=== PATIENT | female | born 1970 ===

== ENCOUNTER 2022-05-11 07:53 | Outpatient (REF) | payer OTHER, SELFPAY ==
--- NOTE | ~2022-05-11 | XR_ITS ---
EXAMINATION: XR KNEES, STANDING AP XR KNEE, RIGHT XR KNEE, LEFT CLINICAL INFORMATION: Knee pain COMPARISON: Bilateral standing AP knees and right knee radiographs 10/11/2017. TECHNIQUE: Standing AP view of both knees is performed. Each knee is also imaged in lateral and axial patella views. FINDINGS: Right: Normal bony mineralization. No fracture, dislocation, or destructive process. There is mild narrowing medial knee joint compartment with marginal spurring medial femoral condyle and medial tibial plateau. No erosive change or chondrocalcinosis. There is a probable small suprapatellar effusion. Axial view patella shows no joint narrowing, lateralization, or tilting. There are serpiginous densities overlying the calf consistent with varicose veins. Left: Normal bony mineralization. No fracture, dislocation, or destructive process. No definite joint narrowing. No erosive change or chondrocalcinosis. No lateralization or significant tilting patella. No suprapatellar effusion demonstrated. There are extensive superficial serpiginous densities overlying the medial thigh and medial calf consistent with varicose veins. XR/XR knee LT 2V IMPRESSION: Right: -Mild narrowing medial knee joint compartment with marginal osteophytes similar to 05/11/2022. -Suspect small suprapatellar effusion. -Varicose veins lower leg. Left: -No joint narrowing or effusion. -Extensive varicose veins upper and lower leg.
--- NOTE | ~2022-05-11 | XR_ITS ---
EXAMINATION: XR KNEES, STANDING AP XR KNEE, RIGHT XR KNEE, LEFT CLINICAL INFORMATION: Knee pain COMPARISON: Bilateral standing AP knees and right knee radiographs 10/11/2017. TECHNIQUE: Standing AP view of both knees is performed. Each knee is also imaged in lateral and axial patella views. FINDINGS: Right: Normal bony mineralization. No fracture, dislocation, or destructive process. There is mild narrowing medial knee joint compartment with marginal spurring medial femoral condyle and medial tibial plateau. No erosive change or chondrocalcinosis. There is a probable small suprapatellar effusion. Axial view patella shows no joint narrowing, lateralization, or tilting. There are serpiginous densities overlying the calf consistent with varicose veins. Left: Normal bony mineralization. No fracture, dislocation, or destructive process. No definite joint narrowing. No erosive change or chondrocalcinosis. No lateralization or significant tilting patella. No suprapatellar effusion demonstrated. There are extensive superficial serpiginous densities overlying the medial thigh and medial calf consistent with varicose veins. XR/XR knee RT 2V IMPRESSION: Right: -Mild narrowing medial knee joint compartment with marginal osteophytes similar to 05/11/2022. -Suspect small suprapatellar effusion. -Varicose veins lower leg. Left: -No joint narrowing or effusion. -Extensive varicose veins upper and lower leg.
--- NOTE | ~2022-05-11 | XR_ITS ---
EXAMINATION: XR KNEES, STANDING AP XR KNEE, RIGHT XR KNEE, LEFT CLINICAL INFORMATION: Knee pain COMPARISON: Bilateral standing AP knees and right knee radiographs 10/11/2017. TECHNIQUE: Standing AP view of both knees is performed. Each knee is also imaged in lateral and axial patella views. FINDINGS: Right: Normal bony mineralization. No fracture, dislocation, or destructive process. There is mild narrowing medial knee joint compartment with marginal spurring medial femoral condyle and medial tibial plateau. No erosive change or chondrocalcinosis. There is a probable small suprapatellar effusion. Axial view patella shows no joint narrowing, lateralization, or tilting. There are serpiginous densities overlying the calf consistent with varicose veins. Left: Normal bony mineralization. No fracture, dislocation, or destructive process. No definite joint narrowing. No erosive change or chondrocalcinosis. No lateralization or significant tilting patella. No suprapatellar effusion demonstrated. There are extensive superficial serpiginous densities overlying the medial thigh and medial calf consistent with varicose veins. XR/XR knee standing BI IMPRESSION: Right: -Mild narrowing medial knee joint compartment with marginal osteophytes similar to 05/11/2022. -Suspect small suprapatellar effusion. -Varicose veins lower leg. Left: -No joint narrowing or effusion. -Extensive varicose veins upper and lower leg.
== END 2022-05-11 07:54 | disposition home or self-care (01) ==
LOC: HO.HOSX 07:53
PROVIDERS: Visit Provider Orthopaedic Surgery
DX: M71.21 Synovial cyst of popliteal space [Baker], right knee (principal); M71.22 Synovial cyst of popliteal space [Baker], left knee
CPT/HCPCS: 73560; 73565; 99202

== ENCOUNTER 2023-06-29 14:20 | Emergency (ER) | payer OTHER, SELFPAY ==
[2023-06-29 14:22] VITALS: BP 148/91; PULSE 110; RESP 18; TEMP 36.7; O2SAT 98; BMI 27.4
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
[2023-06-29 16:28] VITALS: BP 149/83; PULSE 95; O2SAT 99
== END 2023-06-29 16:55 | disposition home or self-care (01) ==
PROVIDERS: Emergency Provider Emergency Medicine
DX: S13.4XXA Sprain of ligaments of cervical spine, initial encounter (principal); S09.90XA Unspecified injury of head, initial encounter; V43.52XA Car driver injured in collision with other type car in traffic accident, initial encounter; Y93.9 Activity, unspecified; Y92.410 Unspecified street and highway as the place of occurrence of the external cause; Y99.9 Unspecified external cause status; Z79.899 Other long term (current) drug therapy
CPT/HCPCS: 99283

== ENCOUNTER 2023-09-07 07:02 | Emergency (ER) | payer OTHER, SELFPAY ==
[2023-09-07 07:11] VITALS: BP 131/85; PULSE 109; RESP 18; TEMP 36.6; O2SAT 97; BMI 27.1
--- NOTE | 2023-09-07 09:11 | ED.EXTPRO ---
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 Patient denies any dizziness, lightheadedness, abdominal pain, nausea, vomiting, fever, chills, blurry vision, double vision, loss of vision, chest pain, difficulty breathing, shortness of breath, back pain, night sweats, pain with urination, increased urinary frequency, increased urinary urgency, blood in her urine or stool, syncope or a near syncopal episode, recent trauma or falls, bowel incontinence, bladder incontinence, bowel retention, bladder retention, or any other complaints at this time. MD Complaint: extremity pain Onset (ago): week(s) Pain Consistency: intermittent Location: left and upper extremity Severity scale (1-10): 3 Radiation: proximal and distal Relieving factors: nothing Exacerbating factors: nothing Associated symptoms: denies other symptoms Related Data Home Medications Medication Instructions Recorded Confirmed lisinopril 20 1 tab PO DAILY 05/11/22 mg-hydrochlorothiazide 12.5 mg tablet Previous Rx's Medication Instructions Recorded cyclobenzaprine 10 mg tablet 10 mg PO TID PRN muscle spasm #14 06/29/23 tabs ibuprofen 600 mg tablet 600 mg PO Q8H PRN pain #14 tabs 06/29/23 lidocaine 5 % topical patch 1 patch topical DAILY #15 ea 06/29/23 prednisone 20 mg tablet 20 mg PO DAILY 7 days #7 tabs 09/07/23 Allergies Allergy/AdvReac Type Severity Reaction Status Date / Time aspirin [ASPIRIN] Allergy Unknown UNKNOWN Verified 09/07/23 07:10 penicillin V Allergy Unknown Hives Verified 09/07/23 07:10 Penicillins [PENICILLINS] Allergy Unknown UNKNOWN Verified 09/07/23 07:10 Review of Systems Constitutional: Constitutional: Reports no additional constitutional complaints, Denies chills, Denies fever(s) and Denies night sweats Eyes: Eyes: Reports no additional eye complaints, Denies blurry vision, Denies change in vision, Denies diplopia, Denies eye discharge, Denies loss of vision and Denies eye pain ENT: Denies dizziness Cardiovascular: Cardiovascular: Reports no additional cardiovascular complaints, Denies chest pain, Denies lightheadedness, Denies Loss of Consciousness and Denies dyspnea Respiratory: Respiratory: Reports no additional respiratory complaints and Denies dyspnea Gastrointestinal: Gastrointestinal: Reports no additional gastrointestinal complaints, Denies abdominal pain, Denies melena, Denies hematochezia, Denies change in bowel habits and Denies change in stool character Genitourinary: Genitourinary: Denies hematuria, Denies urinary frequency, Denies dysuria, Denies urinary incontinence, Denies urinary hesitancy and Denies urinary urgency Musculoskeletal: Musculoskeletal: Reports no additional musculoskeletal complaints, Reports numbness (left first 3rd digits) and Reports tingling (left first 3rd digits) Neurologic: Denies dizziness, Denies loss of vision, Reports numbness (left first 3rd digits) and Reports tingling (left first 3rd digits) Psychiatric: Psychiatric: Reports no additional psychiatric complaints Endocrine: Endocrine: Reports no additional endocrine complaints Hematologic/Lymphatic: Hematologic/Lymphatic: Reports no additional hematologic/lymphatic complaints Allergic/Immunologic: Allergic/Immunologic: Reports no additional allergic/immunologic complaints PMFSH Past Medical History Attestation statement: The following information was validated with the patient. 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 Physical Exam Vital Signs: Vital Signs: Last Vital Signs Temp 97.8 F 09/07/23 07:11 Pulse 109 H 09/07/23 07:11 Resp 18 09/07/23 07:11 BP 131/85 09/07/23 07:11 Pulse Ox 97 09/07/23 07:11 O2 Del Method Room Air 09/07/23 07:11 BMI result Body Mass Index 27.1 Const: General: cooperative, no acute distress, alert and awake Nutritional Appearance: well nourished Orientation/consciousness: patient oriented x3 Limitations: no limitations HEENT: Head: Yes normal to inspection and Yes atraumatic Ears: hearing grossly normal bilaterally and external ears normal General nose exam: Normal external nose present, no nasal discharge noted and no epistaxis Face and sinus: Yes normal facial exam, No abrasion and No laceration Mouth: Normal oral and palatal mucosa present, no drooling and no muffled voice Eyes: General: appearance normal, both eyes and all related structures Periorbital: periorbital findings normal Eyelids: Yes eyelids normal Conjunctivae: conjunctivae normal Pupils: Equal, round and reactive pupils present EOM: EOMs intact bilaterally Neck: Neck: Yes normal visual inspection, Yes full ROM and Yes no lymphadenopathy Chest: Chest palpation & inspection: normal inspection of the chest Resp: Effort & Inspection: normal respiratory effort and able to speak in complete sentences GI: Inspection: Yes normal to inspection Neuro: General: patient oriented x3 and moves all extremities Cranial nerves: Yes Equal, round and reactive pupils present Cognition (Neuro): normal cognition Motor exam (neuro): 5/5 motor strength present throughout Sensory Exam: Normal double simultaneous stimulation for sensation Coordination: [id number] test normal Extrem: Other: positive tinnel test left wrist General: Yes normal to inspection, Yes full ROM and Yes capillary refill normal Psych: Appearance: grossly normal Mental Status: mental status grossly normal Affect: normal affect Attitude: cooperative Thought process: Normal thought process present Thought content: Normal thought content present Insight: Good insight present (Psych) Medical Decision Making Medical Decision Making MDM Narrative: Patient is a 52 year old assigned female at with a history of fibromyalgia presenting to the emergency department today with left wrist pain that radiates into her left first 3 digits and up her forearm. Patient's physical exam was as noted in the physical exam portion of this note. I explained my physical exam findings to the patient. I answered all questions asked by the patient. Patient's left wrist was placed in a velcro splint, without incident. Patient's PMS was intact prior to and after splint placement. I stressed the importance of the patient taking her medication as prescribed. I stressed the importance of the patient following up with her primary care provider and an orthopedic provider. I stressed the importance of the patient returning to the emergency department immediately if her symptoms were to worsen or if she were to develop any dizziness, shortness of breath, difficulty breathing, chest pain, blurry vision, loss of vision, nausea, vomiting, abdominal pain, fever, chills, back pain, or any other complaints. Patient verbalized agreement and understanding with this treatment plan and discharge. Differential Diagnosis Differential Diagnoses: The differential diagnosis associated with the presentation includes Carpal tunnel Procedures Orthopedic Splinting/Casting Injury #1: Side: left Upper Extremity Injury Location: wrist Upper Extremity Immobilizer: wrist splint Discharge Plan Discharge Clinical Impression: Carpal tunnel syndrome Patient Disposition: Home, Self-Care Instructions: Paresthesia (ED) Additional Instructions: Follow up with your primary care provider and an orthopedic provider. Return to the emergency department immediately if your symptoms worsen or if you develop any dizziness, shortness of breath, difficulty breathing, chest pain, blurry vision, loss of vision, nausea, vomiting, abdominal pain, fever, chills, back pain, or any other complaints. Rajesh un seguimiento con ruvalcaba proveedor de atenci?n primaria y un proveedor ortop?dico. Regrese al departamento de emergencias inmediatamente si dustin s?ntomas empeoran o si presenta mareos, dificultad para respirar, dificultad para respirar, dolor en el pecho, visi?n borrosa, p?rdida de la visi?n, n?useas, v?mitos, dolor abdominal, fiebre, escalofr?os, dolor de espalda o cualquier otras quejas. Prescriptions: New prednisone 20 mg tablet 20 mg PO DAILY 7 Days Qty: 7 0RF No Action cyclobenzaprine 10 mg tablet 10 mg PO TID PRN (Reason: muscle spasm) Qty: 14 0RF ibuprofen 600 mg tablet 600 mg PO Q8H PRN (Reason: pain) Qty: 14 0RF lidocaine 5 % adhesive patch,medicated 1 patch topical DAILY Qty: 15 0RF Rx Instructions: leave on most painful area for up to 12 hrs lisinopril-hydrochlorothiazide 20-12.5 mg tablet 1 tab PO DAILY Referrals: [facility] [place] [facility] [Provider Group] (Call to establish and follow up with a primary care provider. If you already have a primary care provider, please follow up with them. Llame para establecer y realizar un seguimiento con un proveedor de atenci?n primaria. Si ya tiene un proveedor de atenci?n primaria, rajesh un seguimiento con ?l.) [facility] [place] [facility] [Provider Group] (Call to establish and follow up with a primary care provider. If you already have a primary care provider, please follow up with them. Llame para establecer y realizar un seguimiento con un proveedor de atenci?n primaria. Si ya tiene un proveedor de atenci?n primaria, rajesh un seguimiento con ?l.) [facility] [place] [facility] [Provider Group] (Call to establish and follow up with a primary care provider. If you already have a primary care provider, please follow up with them. Llame para establecer y realizar un seguimiento con un proveedor de atenci?n primaria. Si ya tiene un proveedor de atenci?n primaria, rajesh un seguimiento con ?l.) [facility] [place] [facility] [Provider Group] (Call to establish and follow up with an orthopedic provider. Llame para establecer y realizar un seguimiento con un proveedor ortop?dico.) Interventions: ED Discharge Assessment Last Done: 09/07/23 10:08 Discharge Date/Time: 09/07/23 10:08 Print Language: [place]i
== END 2023-09-07 10:08 | disposition home or self-care (01) ==
PROVIDERS: Emergency Provider Emergency Medicine
DX: G56.02 Carpal tunnel syndrome, left upper limb (principal); M25.532 Pain in left wrist; Z79.899 Other long term (current) drug therapy
CPT/HCPCS: 29125; 99283

== ENCOUNTER 2023-10-07 22:59 | Emergency (ER) | payer OTHER, MEDICAID, SELFPAY ==
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
[2023-10-07 23:09] VITALS: BP 118/93; BP 176/104; PULSE 100; PULSE 104; RESP 18; TEMP 37.2; O2SAT 97; O2SAT 98; BMI 27.3
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
[2023-10-07 23:41] VITALS: BP 138/87; PULSE 88; RESP 16; TEMP 37.4; O2SAT 94
[2023-10-08 01:00] VITALS: BP 122/76; PULSE 78; RESP 16; TEMP 37.1; O2SAT 97
== END 2023-10-08 01:05 | disposition home or self-care (01) ==
PROVIDERS: Emergency Provider Emergency Medicine
DX: S09.90XA Unspecified injury of head, initial encounter (principal); S16.1XXA Strain of muscle, fascia and tendon at neck level, initial encounter; V43.52XA Car driver injured in collision with other type car in traffic accident, initial encounter; Y93.89 Activity, other specified; Y92.414 Local residential or business street as the place of occurrence of the external cause; Y99.9 Unspecified external cause status
CPT/HCPCS: 70450; 71045; 72125; 99284

== ENCOUNTER 2024-04-10 10:03 | Outpatient (REF) | payer MEDICAID, SELFPAY ==
--- NOTE | ~2024-04-10 | XR_ITS ---
EXAMINATION: XR HAND, LEFT CLINICAL INFORMATION: Chronic hand pain COMPARISON: None available. TECHNIQUE: PA, lateral, and oblique views of the left hand. FINDINGS: Advanced degenerative change observed at the first CMC joint. Hand itself is intact. Joint spaces preserved. No fracture, dislocation or destructive process. XR/XR hand LT min 3V IMPRESSION: Degenerative changes observed at the first CMC.
--- NOTE | ~2024-04-10 | XR_ITS ---
EXAMINATION: XR WRIST, LEFT CLINICAL INFORMATION: Chronic pain COMPARISON: None available. TECHNIQUE: PA, lateral, and oblique views of the left wrist. FINDINGS: Degenerative change observed, at the first CMC joint, and at the level of the multangular bones. There is no acute fracture, dislocation or destructive process. The ulnar styloid is intact. No joint effusion. XR/XR wrist LT min 3V IMPRESSION: Degenerative change noted.
== END 2024-04-10 10:04 | disposition home or self-care (01) ==
LOC: HO.HHCX 10:03
PROVIDERS: Visit Provider Internal Medicine
DX: M25.532 Pain in left wrist (principal); M79.642 Pain in left hand; G89.29 Other chronic pain
CPT/HCPCS: 36415; 73110; 73130; 84443; 85025

== ENCOUNTER 2024-04-10 10:14 | Outpatient (REF) | payer MEDICAID, SELFPAY ==
[2024-04-10 11:53] LABS: MANUAL DIFF FLAG NO
[2024-04-10 12:02] LABS: Basophils Absolute Auto 0.1 X10*3/uL (0.0-0.2); Basophils Percent Auto 0.6 % (0-2); Eosinophils Absolute Auto 0.3 X10*3/uL (0.0-0.4); Eosinophils Percent Auto 2.6 % (0-4); Hematocrit 42.9 % (37.0-47.0); Hemoglobin 14.1 g/dl (12.0-16.0); Imm Gran Abs Auto 0.04 X10*3/uL (0.00-0.03); Imm Gran Pct Auto 0.4 % (0.0-0.4); Lymphocytes Absolute Auto 3.1 X10*3/uL (1.2-4.9); Lymphocytes Percent Auto 32.4 % (20-40); Mean Corpuscular HGB Conc 32.9 g/dl (31.0-35.0); Mean Corpuscular Hemoglobin 30.1 pg (27.0-33.0); Mean Corpuscular Volume 91.7 fL (80.0-98.0); Mean Platelet Volume 12.4 fL (9.4-12.3); Monocytes Absolute Auto 0.7 X10*3/uL (0.1-1.2); Monocytes Percent Auto 7.3 % (2-11); Neutrophils Absolute Auto 5.4 x10*3/uL (2.0-8.3); Neutrophils Percent Auto 56.7 % (45-73); Platelet Count 244 X10*3/uL (160-400); Red Blood Count 4.68 X10*6/uL (4.20-5.50); Red Cell Distribution Width 13.3 % (11.0-16.0); White Blood Count 9.5 X10*3/uL (4.8-10.8)
[2024-04-10 12:38] LABS: TSH reflex Free T4 3.17 uIU/mL (0.32-4.0)
== END 2024-04-10 10:15 | disposition home or self-care (01) ==
LOC: HO.HHCL 10:14
PROVIDERS: Visit Provider Internal Medicine
DX: E04.9 Nontoxic goiter, unspecified (principal)
CPT/HCPCS: 36415; 84443; 85025

== ENCOUNTER 2024-04-25 09:14 | Outpatient (REF) | payer MEDICAID, SELFPAY ==
[2024-04-25 11:43] LABS: Alanine Aminotransferase 23 U/L (0-31); Albumin Level 4.8 g/dL (3.5-5.0); Alkaline Phosphatase 112 U/L (39-117); Anion Gap 13 (12-20); Aspartate Amino Transferase 28 U/L (5-31); Bilirubin Total 0.7 mg/dL (0.0-1.0); Blood Urea Nitrogen 15 mg/dL (9-16); Calcium 11.3 mg/dL (8.4-10.2); Carbon Dioxide 25 mmol/L (22-29); Chloride 108 mmol/L (96-108); Cholesterol 211 mg/dL (<200); Estimated Glomerular Filt Rate > 60; Glucose Random 107 mg/dL (60-115); HDL Cholesterol 50 mg/dL (>40); LDL Cholesterol Calculated 140 mg/dL (<100); Potassium 4.7 mmol/L (3.3-5.1); Sodium 141 mmol/L (135-145); Total Protein 9.6 g/dL (6.5-8.0); Triglycerides 105 mg/dL (<150)
[2024-04-25 11:55] LABS: HBS Num1 0.45 mIU/mL (0-7.99); HBc Num1 0.14 S/CO (0.00-0.79); HBsAGNum1 0.28 S/CO (0.00-0.99); HIV AB/AG Nonreactive (Nonreactive); HIV Num 1 0.05 S/CO (0.00-0.99); Hepatitis A Antibody IgM 0.12 Index (0-0.79); Hepatitis B Core Antibody Nonreactive (Nonreactive); Hepatitis B Surface Antigen Negative (Negative); ~HepC Num1 0.13 S/CO (0.00-0.79); ~Hepatitis A Antibody IgM Nonreactive (Nonreactive); ~Hepatitis B Surface Antibody NONREACTIVE (Nonreactive); ~Hepatitis C Antibody Nonreactive (Nonreactive)
[2024-04-28 14:33] LABS: RPR Rapid Plasma Reagin REACTIVE (NON-REACTIVE)
== END 2024-04-25 09:15 | disposition home or self-care (01) ==
LOC: HO.HHCL 09:14
PROVIDERS: Visit Provider Registered Nurse
DX: Z00.00 Encounter for general adult medical examination without abnormal findings (principal); I10 Essential (primary) hypertension
CPT/HCPCS: 36415; 80053; 80061; 86592; 86593; 86704; 86706; 86709; 86803; 87340; 87389

== ENCOUNTER 2024-05-25 08:51 | Emergency (ER) | payer MEDICAID, SELFPAY ==
[2024-05-25 09:05] VITALS: BP 126/80; PULSE 89; RESP 20; TEMP 36; O2SAT 98; BMI 26.6
--- NOTE | 2024-05-25 10:12 | ED.RECABL ---
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 Patient reports that she was seen at [facility] this month and was diagnosed with syphilis. She wanted a 2nd opinion and so she went to [facility] and had confirmatory syphilis testing. She was prescribed doxycycline (assuming due to her PCN allergy) which she picked up Sunday. She is concerned to start it because of sun exposure. She has no symptoms. She is here today because she would like me to retest her for syphilis because she does not believe her diagnosis. Related Data Home Medications ?Medication ?Instructions ?Recorded ?Confirmed lisinopril 20 1 tab PO DAILY 05/11/22 mg-hydrochlorothiazide 12.5 mg tablet Previous Rx's ?Medication ?Instructions ?Recorded cyclobenzaprine 10 mg tablet 10 mg PO TID PRN muscle spasm #14 06/29/23 tabs ibuprofen 600 mg tablet 600 mg PO Q8H PRN pain #14 tabs 06/29/23 lidocaine 5 % topical patch 1 patch topical DAILY #15 ea 06/29/23 prednisone 20 mg tablet 20 mg PO DAILY 7 days #7 tabs 09/07/23 cyclobenzaprine 10 mg tablet 10 mg PO TID PRN muscle spasm #20 10/08/23 tabs lidocaine 5 % topical patch 1 patch topical DAILY #30 ea 10/08/23 Allergies Allergy/AdvReac Type Severity Reaction Status Date / Time aspirin [ASPIRIN] Allergy Unknown UNKNOWN Verified 05/25/24 09:11 penicillin V Allergy Unknown Hives Verified 05/25/24 09:11 Penicillins [PENICILLINS] Allergy Unknown UNKNOWN Verified 05/25/24 09:11 Review of Systems Review of Systems: Yes all other systems are reviewed and are negative Constitutional: Constitutional: Reports no additional constitutional complaints, Denies body ache(s), Denies chills, Denies fever(s), Denies headache(s) and Denies weakness Eyes: Eyes: Reports no additional eye complaints and Denies change in vision ENT: Reports system reviewed and no additional complaints, except as documented, Denies dizziness, Denies headache(s), Denies nasal congestion, Denies nasal discharge and Denies neck pain Cardiovascular: Cardiovascular: Reports no additional cardiovascular complaints, Denies chest pain, Denies leg edema and Denies dyspnea Respiratory: Respiratory: Reports no additional respiratory complaints, Denies cough and Denies dyspnea Gastrointestinal: Gastrointestinal: Reports no additional gastrointestinal complaints, Denies abdominal pain, Denies diarrhea, Denies nausea and Denies vomiting Genitourinary: Genitourinary: Reports no additional female genitourinary complaints and Denies urinary incontinence Musculoskeletal: Musculoskeletal: Reports no additional musculoskeletal complaints, Denies back pain, Denies arthralgias, Denies joint swelling, Denies neck pain, Denies numbness and Denies tingling Integumentary/Breasts: Skin/Breast: Reports system reviewed and no additional complaints, except as docu and Denies rash Neurologic: Reports system reviewed and no additional complaints, except as documented, Denies Abnormal speech present, Denies dizziness, Denies headache(s), Denies numbness, Denies tingling and Denies weakness [facility] Past Medical History Attestation statement: The following information was validated with the patient. 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 Physical Exam Vital Signs: Vital Signs: Last Vital Signs Temp 97.0 F 05/25/24 10:25 Pulse 83 05/25/24 10:25 Resp 18 05/25/24 10:25 BP 128/76 05/25/24 10:25 Pulse Ox 98 05/25/24 10:25 O2 Del Method Room Air 05/25/24 10:25 BMI result Body Mass Index 26.6 Const: General: cooperative, healthy appearing, comfortable and no acute distress Orientation/consciousness: patient oriented x3 Limitations: no limitations HEENT: Head: Yes normal to inspection Ears: hearing grossly normal bilaterally General nose exam: Normal external nose present Face and sinus: Yes normal facial exam Mouth: Normal oral and palatal mucosa present Throat: Yes posterior oropharynx normal Eyes: General: appearance normal, both eyes and all related structures Pupils: Equal, round and reactive pupils present Neck: Neck: Yes normal visual inspection Chest: Chest palpation & inspection: normal inspection of the chest Resp: Effort & Inspection: normal respiratory effort Auscultation: clear to auscultation bilaterally Cardio: Rate: regular rate Rhythm: regular rhythm Peripheral pulses: Peripheral pulses 2+ throughout GI: Inspection: Yes normal to inspection Palpation (GI): Soft to palpation and nontender Auscultation: normal bowel sounds Back/Spine/Pelvis: Thoracic/Lumbar Spine: thoracic and lumbar spine normal to inspection Skin: General skin exam: no rashes or lesions noted Neuro: General: patient oriented x3, no focal motor deficits and normal sensation to monofilament Cranial nerves: Yes Equal, round and reactive pupils present Cognition (Neuro): normal cognition Speech: No Abnormal speech present Gait exam (Neuro): Normal gait present Motor exam (neuro): 5/5 motor strength present throughout Extrem: General: Yes normal to inspection Medical Decision Making Medical Decision Making MDM Narrative: 53-year-old female with a history of hypertension presents to the ER with questions in regards to her recent syphilis diagnosis. Patient reports that she was seen at [facility] this month and was diagnosed with syphilis. She wanted a 2nd opinion and so she went to [facility] and had confirmatory syphilis testing. She was prescribed doxycycline (assuming due to her PCN allergy) which she picked up Sunday. She is concerned to start it because of sun exposure. She has no symptoms. She is here today because she would like me to retest her for syphilis because she does not believe her diagnosis. The patient has a lot of anxiety about her recent diagnosis. She has many questions for me about this diagnosis. She would like to be retested. She does have labs in our system not show reactive RPR and RPR titer of 1.2. This was from 04/25/2024. I do not believe that this time it is appropriate to retest the patient. I explained this to the patient. I did encourage her to continue to take the doxycycline as this is the appropriate treatment. If she seeks additional clarification or has additional questions that is most appropriate for her to speak to her primary care doctor which she plans on calling on Sunday. I did review worrisome signs and symptoms with her and when to return to the emergency room. Comfortable plan for discharge home. Differential Diagnosis Differential Diagnoses: The differential diagnosis associated with the presentation includes Syphilis Independent Historian Clinical information obtained from an independent historian. History obtained from or confirmed by: Friend Tests considered The following testing was considered but not selected: See discussion above Prescription Management I considered prescription management with: Antibiotic Chronic Conditions Patient?s care impacted by: Hypertension Discharge Plan Discharge Clinical Impression: Syphilis Patient Disposition: Home, Self-Care Instructions: Syphilis (ED) Additional Instructions: Please take the antibiotic that was prescribed to you Avoid sun exposure and use some protection as discussed Feel free to follow-up with the prescriber of the antibiotic as it seems that you do see some additional clarification and have additional questions. Prescriptions: No Action cyclobenzaprine 10 mg tablet 10 mg PO TID PRN (Reason: muscle spasm) Qty: 14 0RF ibuprofen 600 mg tablet 600 mg PO Q8H PRN (Reason: pain) Qty: 14 0RF lidocaine 5 % adhesive patch,medicated 1 patch topical DAILY Qty: 15 0RF Rx Instructions: leave on most painful area for up to 12 hrs prednisone 20 mg tablet 20 mg PO DAILY 7 Days Qty: 7 0RF cyclobenzaprine 10 mg tablet 10 mg PO TID PRN (Reason: muscle spasm) Qty: 20 0RF lidocaine 5 % adhesive patch,medicated 1 patch topical DAILY Qty: 30 0RF Rx Instructions: leave on most painful area for up to 12 hrs lisinopril-hydrochlorothiazide 20-12.5 mg tablet 1 tab PO DAILY Referrals: Physician,Unknown J [Primary Care Provider] - 1 week Interventions: ED Discharge Assessment Last Done: 05/25/24 10:25 Discharge Date/Time: 05/25/24 10:25 Print Language: [place]
[2024-05-25 10:25] VITALS: BP 128/76; PULSE 83; RESP 18; TEMP 36.1; O2SAT 98
== END 2024-05-25 10:25 | disposition home or self-care (01) ==
PROVIDERS: Emergency Provider Emergency Medicine
DX: A53.9 Syphilis, unspecified (principal); R79.89 Other specified abnormal findings of blood chemistry
CPT/HCPCS: 99282

== ENCOUNTER 2024-09-05 07:44 | Emergency (ER) | payer OTHER, SELFPAY ==
--- NOTE | ~2024-09-05 | XR_ITS ---
EXAMINATION: XR FOOT, LEFT CLINICAL INFORMATION: Pain COMPARISON: None available. TECHNIQUE: AP, lateral, and oblique views of the left foot. FINDINGS: No acute cortical disruption or malalignment. No lytic or blastic lesions. XR/XR foot LT min 3V IMPRESSION: No acute fracture or dislocation. Electronically signed by: Onel Parrish MD 09/05/2024 10:19 AM [facility] [place]
[2024-09-05 07:49] VITALS: BP 141/84; PULSE 85; RESP 18; TEMP 36.8; O2SAT 98; BMI 25.7
--- NOTE | 2024-09-05 08:00 | ED.GENADULT ---
HPI - General Adult General Chief complaint: General Medical Stated complaint: leg pain Time Seen by Provider: 09/05/24 08:00 Source: patient Mode of arrival: ambulatory Limitations: no limitations History of Present Illness ED Provider: liana CARDOSO narrative: Patient is a 53-year-old female presenting to the ED with complaint of left foot pain since last night. States that she was walking to the pharmacy when she heard/felt a cracking sensation and has had pain to her left lateral foot since. Worse with ambulation and palpation. Denies fall or other trauma. MD complaint: left foot pain Onset (ago): hour(s) Treatments prior to arrival: none Related Data Home Medications ?Medication ?Instructions ?Recorded ?Confirmed lisinopril 20 1 tab PO DAILY 05/11/22 mg-hydrochlorothiazide 12.5 mg tablet Previous Rx's ?Medication ?Instructions ?Recorded cyclobenzaprine 10 mg tablet 10 mg PO TID PRN muscle spasm #14 06/29/23 tabs ibuprofen 600 mg tablet 600 mg PO Q8H PRN pain #14 tabs 06/29/23 lidocaine 5 % topical patch 1 patch topical DAILY #15 ea 06/29/23 prednisone 20 mg tablet 20 mg PO DAILY 7 days #7 tabs 09/07/23 cyclobenzaprine 10 mg tablet 10 mg PO TID PRN muscle spasm #20 10/08/23 tabs lidocaine 5 % topical patch 1 patch topical DAILY #30 ea 10/08/23 Allergies Allergy/AdvReac Type Severity Reaction Status Date / Time penicillin V Allergy Unknown Hives Verified 09/05/24 07:56 Penicillins [PENICILLINS] Allergy Unknown UNKNOWN Verified 09/05/24 07:56 Review of Systems Review of Systems: As per HPI Yes all other systems are reviewed and are negative Constitutional: Constitutional: Reports as per HPI [facility] Past Medical History Medical History High blood pressure Social History Social History Alcohol intake: never Advance Directives: No Advance Directives Information Provided: Yes Do you have a plan to hurt others: No Plan Current occupational status: disabled 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 Blood pressure normal. Heart rate normal. Respiratory rate normal. Temperature normal. Oxygen saturation normal. Const General: cooperative, healthy appearing and no acute distress Orientation/consciousness: oriented to person, oriented to place, oriented to time and patient oriented x3 Limitations: no limitations HENMT Head: Yes normocephalic and Yes atraumatic Ears: external ears normal General nose exam: Normal external nose present Face and sinus: Yes face symmetric Mouth: oropharynx normal and moist mucous membranes Throat: Yes uvula midline Eyes Pupils: Equal, round and reactive pupils present Neck Neck: Yes normal visual inspection and Yes supple Resp Effort & Inspection: normal respiratory effort and able to speak in complete sentences Auscultation: clear to auscultation bilaterally Cardio Rate: regular rate Rhythm: regular rhythm Heart sounds: S1 normal heart sound present and S2 normal heart sound present GI Palpation (GI): Soft to palpation and nontender Auscultation: normoactive bowel sounds General: Yes no CVA tenderness Back/Spine/Pelvis Back: no CVA tenderness Skin General skin exam: elasticity normal and turgor normal Neuro General: oriented to person, oriented to place, oriented to time, patient oriented x3, moves all extremities, no focal motor deficits and CN's II-XI intact bilaterally Cranial nerves: Yes Equal, round and reactive pupils present Cognition (Neuro): normal cognition Extrem General: Yes full ROM, Yes no pedal edema and Yes no calf tenderness Left lower extremity: ankle Details: normal to inspection and normal ROM; no tenderness and foot Details: normal capillary refill, normal to inspection, tenderness Location: of the dorsal foot Location: laterally, toes with normal ROM, no edema and vascular exam Details: dorsalis pedis pulse present, posterior tibial pulse present and normal capillary refill; no unusual warmth, no abrasions and no ecchymosis Psych Mental Status: mental status grossly normal Affect: normal affect Thought process: Normal thought process present Medical Decision Making Medical Decision Making MDM Narrative: Patient is a 53-year-old female presenting to the ED with complaint of left foot pain since last night. On exam patient is awake, A+Ox3, VS WNL, afebrile, normal neurological exam without focal deficits, physical exam findings as above. Given reported symptoms and physical exam findings, initial differential includes left foot strain, sprain, fracture. X-ray notable for no acute fracture. My interpretation is in agreement with the radiologist's interpretation. Patient updated on results and all questions answered. Patient placed in Erwin wrap and postop shoe, advised to keep foot elevated, apply ice intermittently, use Tylenol and ibuprofen as needed for pain. Will refer to ortho for ongoing symptoms. Return precautions discussed at bedside. Patient verbalized understanding of and agreement with plan. In-person graphics intern was utilized for all interactions, assessments, and discussions. Differential Diagnosis Differential Diagnoses: The differential diagnosis associated with the presentation includes as per mdm Independent Interpretation I performed an independent interpretation of an: Plain X-Ray Interpretation: No acute Fracture left foot. Radiology Impression Discussion of test interpretation with radiology: I have reviewed the radiologist's reading. Radiologist Impression: XR/XR foot LT min 3V IMPRESSION: No acute fracture or dislocation. External Record Review External record reviewed: Inpatient record, Office record and Outpatient record Discharge Plan Discharge Clinical Impression: Strain of foot, left Patient Disposition: Home, Self-Care Instructions: R.I.C.E. Treatment (ED), How to Use an Elastic Bandage (ED) Additional Instructions: You have been evaluated in the emergency department today for foot pain. Your evaluation did not find evidence of medical conditions requiring emergent intervention at this time. We have provided an Erwin wrap and post-op shoe for you to use while your foot heals. Please rest, ice, and elevate your foot, and resume normal activities as tolerated. We recommend you take 600mg ibuprofen every 6 hours or 650mg Tylenol every 6 hours as needed for pain. If Needed you can alternate these medications as they take 1 medication every 3 hours. For instance at noon take ibuprofen, then at 3:00 p.m. take Tylenol, then at 6:00 p.m. take ibuprofen. Please schedule an appointment for follow-up with your primary care provider this week. Return to the emergency department if you experience worsening pain, numbness, tingling, change of color in your foot, or any other concerning symptoms. Prescriptions: No Action cyclobenzaprine 10 mg tablet 10 mg PO TID PRN (Reason: muscle spasm) Qty: 14 0RF ibuprofen 600 mg tablet 600 mg PO Q8H PRN (Reason: pain) Qty: 14 0RF lidocaine 5 % adhesive patch,medicated 1 patch topical DAILY Qty: 15 0RF Rx Instructions: leave on most painful area for up to 12 hrs prednisone 20 mg tablet 20 mg PO DAILY 7 Days Qty: 7 0RF cyclobenzaprine 10 mg tablet 10 mg PO TID PRN (Reason: muscle spasm) Qty: 20 0RF lidocaine 5 % adhesive patch,medicated 1 patch topical DAILY Qty: 30 0RF Rx Instructions: leave on most painful area for up to 12 hrs lisinopril-hydrochlorothiazide 20-12.5 mg tablet 1 tab PO DAILY Referrals: [facility] [Provider Group] Print Language: Monegasque
--- NOTE | 2024-09-05 08:34 | PC.NURSE ---
xray taken at this time. plan of care ongoing.
[2024-09-05 11:19] VITALS: BP 119/85; PULSE 72; RESP 16; TEMP 36.8; O2SAT 97
--- NOTE | 2024-09-05 11:34 | PC.NURSE ---
laverne bandage/post-op boot applied to left foot. pt tolerated well.
== END 2024-09-05 11:35 | disposition home or self-care (01) ==
PROVIDERS: Emergency Provider Emergency Medicine; PCP Internal Medicine
DX: S96.912A Strain of unspecified muscle and tendon at ankle and foot level, left foot, initial encounter (principal); X50.9XXA Other and unspecified overexertion or strenuous movements or postures, initial encounter; Y93.01 Activity, walking, marching and hiking; Y92.480 Sidewalk as the place of occurrence of the external cause; Y99.9 Unspecified external cause status
CPT/HCPCS: 73630; 99283

== ENCOUNTER → 2024-09-05 08:06 | Outpatient (BNV) | payer OTHER, SELFPAY | PROVIDERS: Emergency Provider Emergency Medicine; PCP Internal Medicine; Visit Provider Radiology Diagnostic Radiology | DX: M79.672 Pain in left foot (principal) | CPT/HCPCS: 73630 ==

== ENCOUNTER 2024-12-01 18:31 | Emergency (ER) | payer OTHER, SELFPAY | END 2024-12-01 19:54 | disposition left against medical advice (07) | PROVIDERS: Emergency Provider Emergency Medicine | DX: R06.02 Shortness of breath (principal) ==

== ENCOUNTER 2025-03-24 07:56 | Emergency (ER) | payer OTHER, SELFPAY ==
--- NOTE | ~2025-03-24 | XR_ITS ---
EXAMINATION: XR FOOT, LEFT CLINICAL INFORMATION: 5th metarsal fracture COMPARISON: Ankle radiographs earlier same day. Left foot 09/15/2024. TECHNIQUE: AP, lateral, and oblique views of the left foot. FINDINGS: No fracture, dislocation, or suspicious bone lesion. Normal alignment. The fifth metatarsal appears intact. Mild degenerative arthritis in the first MTP joint. Mild spurring of the medial eminence of the first metatarsal head. Normal plantar arch. Small plantar and dorsal calcaneal spurs. No soft tissue abnormality . XR/XR foot LT 2V IMPRESSION: 1. No definite fracture of the fifth metatarsal or left foot. Electronically signed by: Krystian Angulo MD 03/24/2025 10:02 AM EDT
--- NOTE | ~2025-03-24 | XR_ITS ---
EXAMINATION: XR ANKLE 3 OR MORE VIEWS LEFT HISTORY: pain, diff ambulating COMPARISON: There are no prior studies available for comparison. FINDINGS: Four views of the left ankle are submitted. Osseous mineralization is normal. There is an avulsion fracture of the tip of the distal fibula. There may be an additional nondisplaced fracture of the base of the 5th metatarsal. There is no dislocation. The joint spaces are preserved. There is soft tissue swelling over the lateral malleolus. XR/XR ankle LT min 3V IMPRESSION: 1. Avulsion fracture of the tip of the distal fibula with overlying soft tissue swelling. 2. Possible additional fracture of the base of the 5th metatarsal. Dedicated images of the foot are recommended. Electronically signed by: Samy Segundo MD 03/24/2025 08:56 AM EDT
[2025-03-24 08:05] VITALS: BP 152/84; PULSE 86; RESP 16; TEMP 36.1; O2SAT 97; BMI 26.3
--- OUTSIDE RECORDS SUMMARY | 2025-03-24 09:35 | XMS_ITS | Encounter Summary ---
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 Name Role Phone Unavailable Primary Care Provider Unavailabl e Encounter Details Date Type Department Care Team (Late st Contact Info) Description 05/13/2024 Orders Only [facility] [address] [place] [address] Cony De Leon DO [address] [place] [address] Social History Tobacco Use Types Packs/Day Years Used Date Smoking Tobacco: Never Passive Smoke Exposure: Never Smokeless Tobacco: Never Depression Answer Date Recorded Patient Health Questionnaire-9 Score 8 01/15/2024 Patient Health Questionnaire-9 Score 8 01/15/2024 Last PHQ-9: Questionnaire Data Not on file 0 01/15/2024 Depression Answer Date Recorded Patient Health Questionnaire-2 Score 2 01/15/2024 Comments Unknown Sex and Gender Information Value Date Recorded Sex Assigned at Female 01/14/2024 8:37 AM EDT Legal Sex Female 1:06 PM EDT Gender Identity Female 01/14/2024 8:37 AM EDT Sexual Orientation Straight 01/14/2024 8: 37 AM EDT documented as of this encounter Plan of Treatment Not on file documented as of this encounter Visit Diagnoses Not on filedocumented in this encounter Additional Health Concerns Assessment Noted Time PHQ-9 Depression Total Score: 8 01/15/20 24 2:26 PM EDT documented as of this encounter
--- NOTE | 2025-03-24 09:51 | ED.GENADULT ---
HPI - General Adult General Chief complaint: Extremity Injury, Lower Stated complaint: Foot pain/swelling Time Seen by Provider: 03/24/25 09:24 Source: patient Mode of arrival: ambulatory Limitations: no limitations History of Present Illness ED Provider: Mika Barba HPI narrative: 54 yold female with pmh of synovial popliteal roy cysts, fibromyalgia, artheritis, carpel tunnel syndrome presents to the ED for left ankle pain for the past 2 weeks. Patient states twisting left ankle on in a hole while wakling and looking for her grandson dog two weeks ago. patient denies hitting head, or falling to the ground. Patient states swelling around ankle has improved and resolved, but still has pain. Related Data Home Medications ?Medication ?Instructions ?Recorded ?Confirmed lisinopril 20 1 tab PO DAILY 05/11/22 mg-hydrochlorothiazide 12.5 mg tablet Previous Rx's ?Medication ?Instructions ?Recorded cyclobenzaprine 10 mg tablet 10 mg PO TID PRN muscle spasm #14 06/29/23 tabs ibuprofen 600 mg tablet 600 mg PO Q8H PRN pain #14 tabs 06/29/23 lidocaine 5 % topical patch 1 patch topical DAILY #15 ea 06/29/23 prednisone 20 mg tablet 20 mg PO DAILY 7 days #7 tabs 09/07/23 cyclobenzaprine 10 mg tablet 10 mg PO TID PRN muscle spasm #20 10/08/23 tabs lidocaine 5 % topical patch 1 patch topical DAILY #30 ea 10/08/23 Allergies Allergy/AdvReac Type Severity Reaction Status Date / Time penicillin V Allergy Unknown Hives Verified 03/24/25 08:05 Penicillins [PENICILLINS] Allergy Unknown UNKNOWN Verified 03/24/25 08:05 Review of Systems Review of Systems: Left ankle pain Yes all other systems are reviewed and are negative [facility] Past Medical History Medical History High blood pressure Social History Social History Alcohol intake: never Smoked in Last 30 Days: No Use of substances other than those prescribed or required for medical reasons: No Advance Directives: No Advance Directives Information Provided: Yes Current occupational status: disabled 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 Physical Exam ED Vital Signs: Vital Signs - 24 hr 03/24/25 08:05 05/27/25 10:37 03/24/25 10:39 Temperature 97.0 F 98.0 F 98.0 F Pulse Rate 86 80 80 Respiratory Rate 16 18 18 Blood Pressure 152/84 H 148/93 H 148/93 H Pulse Oximetry 97 95 95 Oxygen Delivery Method Room Air Room Air Room Air BMI result Body Mass Index 26.3 Const General: cooperative, healthy appearing, comfortable, no acute distress, well developed, alert, awake and Physically active Orientation/consciousness: patient oriented x3 [facility] Head: Yes normal to inspection, Yes No palpable skull fracture present, Yes normocephalic and Yes atraumatic Eyes General: appearance normal, both eyes and all related structures Neck Neck: Yes normal visual inspection, Yes full ROM, Yes no lymphadenopathy, Yes no meningeal signs, Yes trachea midline, Yes supple, No anterior neck swelling and No tender Chest Chest palpation & inspection: normal inspection of the chest and normal palpation of entire chest wall Resp Effort & Inspection: normal respiratory effort and able to speak in complete sentences Auscultation: clear to auscultation bilaterally Cardio Jugular venous distension: no JVD Heart sounds: S1 normal heart sound present and S2 normal heart sound present GI Inspection: Yes normal to inspection Palpation (GI): Soft to palpation, not firm, nontender, no guarding and not rigid General: Yes no CVA tenderness Back/Spine/Pelvis Back: no CVA tenderness and No back tenderness Skin General skin exam: no rashes or lesions noted, elasticity normal and turgor normal Neuro General: patient oriented x3, gait normal, tone normal, moves all extremities, Normal light touch and pain sensation, no meningeal signs, no focal motor deficits, CN's II-XI intact bilaterally and normal sensation to monofilament Extrem Ankle/foot/toe images: 1. Positive for tenderness on palpation. Negative for erythema, ecchymosis, swelling, redness, wounds, or ulcers. Santos test negative. Achilles intact. Vascular motor neuro exam intact. Rest of extremity normal. Negative for leg swelling, calf pain, or knee swelling. Psych Appearance: grossly normal, well kempt and not disheveled Medical Decision Making Medical Decision Making MDM Narrative: 54-year-old female presents to ED for left ankle pain after foot being caught in a hole while chasing grandson dog 2 weeks ago. Patient states slight pain on ambulation or left ankle foot area. Patient denies any head trauma. Foot x-ray negative for fracture. Ankle x-ray positive for avulsion fracture of left distal tibia. Patient will be placed in walking boot and crutches. Patient is able to bear weight. Trauma occurred 2 weeks ago. Patient already has Motrin at home and pain is controlled. Patient will follow up with orthopedic surgeon. Not suspecting septic joint, Achilles tendon rupture, DVT, brain bleed, compartment syndrome, cellulitis, osteomyelitis, or any other life-threatening etiology. Patient explained worrisome signs informed to return to the ED immediately Differential Diagnosis Differential Diagnoses: The differential diagnosis associated with the presentation includes (ankle fracture, dislocation, ) Admission/Observation Consideration of admission/observation: Escalation of care including admission/observation considered Independent Interpretation I performed an independent interpretation of an: Plain X-Ray Radiology Impression Discussion of test interpretation with radiology: I have reviewed the radiologist's reading. Independent Historian Clinical information obtained from an independent historian. History obtained from or confirmed by: Other (patinet) Prescription Management I considered prescription management with: Pain Medication Discharge Plan Discharge Clinical Impression: Avulsion fracture of distal fibula Patient Disposition: Home, Self-Care Instructions: Leg Fracture (ED), Crutch Instructions (ED), Avulsion Fracture (ED) Additional Instructions: You will need follow-up with orthopedic surgeon. Return to the ED immediately for any swelling, redness, bluish black discoloration, inability to walk, calf pain, chest pain, shortness of breath, numbness/tingling, or any other concerning symptoms. Continue taking Motrin at home for pain. EXAMINATION: XR ANKLE 3 OR MORE VIEWS LEFT HISTORY: pain, diff ambulating COMPARISON: There are no prior studies available for comparison. FINDINGS: Four views of the left ankle are submitted. Osseous mineralization is normal. There is an avulsion fracture of the tip of the distal fibula. There may be an additional nondisplaced fracture of the base of the 5th metatarsal. There is no dislocation. The joint spaces are preserved. There is soft tissue swelling over the lateral malleolus. XR/XR ankle LT min 3V IMPRESSION: 1. Avulsion fracture of the tip of the distal fibula with overlying soft tissue swelling. 2. Possible additional fracture of the base of the 5th metatarsal. Dedicated images of the foot are recommended. Electronically signed by: Samy Segundo MD 03/24/2025 08:56 AM EDT RP EXAMINATION: XR ANKLE 3 OR MORE VIEWS LEFT HISTORY: pain, diff ambulating COMPARISON: There are no prior studies available for comparison. FINDINGS: Four views of the left ankle are submitted. Osseous mineralization is normal. There is an avulsion fracture of the tip of the distal fibula. There may be an additional nondisplaced fracture of the base of the 5th metatarsal. There is no dislocation. The joint spaces are preserved. There is soft tissue swelling over the lateral malleolus. XR/XR ankle LT min 3V IMPRESSION: 1. Avulsion fracture of the tip of the distal fibula with overlying soft tissue swelling. 2. Possible additional fracture of the base of the 5th metatarsal. Dedicated images of the foot are recommended. Electronically signed by: Samy Segundo MD 03/24/2025 08:56 AM EDT Prescriptions: No Action cyclobenzaprine 10 mg tablet 10 mg PO TID PRN (Reason: muscle spasm) Qty: 14 0RF ibuprofen 600 mg tablet 600 mg PO Q8H PRN (Reason: pain) Qty: 14 0RF lidocaine 5 % adhesive patch,medicated 1 patch topical DAILY Qty: 15 0RF Rx Instructions: leave on most painful area for up to 12 hrs prednisone 20 mg tablet 20 mg PO DAILY 7 Days Qty: 7 0RF cyclobenzaprine 10 mg tablet 10 mg PO TID PRN (Reason: muscle spasm) Qty: 20 0RF lidocaine 5 % adhesive patch,medicated 1 patch topical DAILY Qty: 30 0RF Rx Instructions: leave on most painful area for up to 12 hrs lisinopril-hydrochlorothiazide 20-12.5 mg tablet 1 tab PO DAILY Referrals: [facility] [place] Orthopedic Surgeons [Provider Group] (Avulsion fracture of the distal fibula) Stand Alone Forms: Work/School Release Interventions: ED Discharge Assessment Last Done: 03/24/25 10:39 Discharge Date/Time: 03/24/25 10:40 Print Language: Kyrgyz
[2025-03-24 10:37] VITALS: BP 148/93; PULSE 80; RESP 18; TEMP 36.7; O2SAT 95
[2025-03-24 10:39] VITALS: BP 148/93; PULSE 80; RESP 18; TEMP 36.7; O2SAT 95
== END 2025-03-24 10:40 | disposition home or self-care (01) ==
PROVIDERS: Emergency Provider Emergency Medicine
DX: S82.832A Other fracture of upper and lower end of left fibula, initial encounter for closed fracture (principal); M25.572 Pain in left ankle and joints of left foot; X50.1XXA Overexertion from prolonged static or awkward postures, initial encounter; Y93.9 Activity, unspecified; Y92.9 Unspecified place or not applicable; Y99.8 Other external cause status; Z79.899 Other long term (current) drug therapy
CPT/HCPCS: 73610; 73620; 99283; 99284

== ENCOUNTER → 2025-03-24 08:42 | Outpatient (BNV) | payer OTHER, SELFPAY | PROVIDERS: Visit Provider Radiology Diagnostic Radiology | DX: M25.572 Pain in left ankle and joints of left foot (principal); M79.672 Pain in left foot | CPT/HCPCS: 73610; 73620 ==

== ENCOUNTER 2025-08-27 10:52 | Emergency (ER) | payer OTHER, SELFPAY ==
--- NOTE | ~2025-08-27 | XR_ITS ---
EXAMINATION: XR LUMBOSACRAL SPINE CLINICAL INFORMATION: back pain. fracture? COMPARISON: None available. TECHNIQUE: Three views of the lumbosacral spine. FINDINGS: Mild anterior subluxation of L4 with respect to L5 measuring 2.5 mm. Bone alignment is otherwise normal. No fracture or dislocation. Mild degenerative spondylosis at L2-3 Degenerative spondylosis and degenerative disc disease at L5-S1. There is lower lumbar spine facet arthritis. Mild atherosclerotic disease. XR/XR lumbar spine 2-3V IMPRESSION: No fracture seen. Degenerative changes. Mild anterior subluxation of L4 with respect to L5 probably secondary to facet arthritis. Electronically signed by: Quiana Barros MD 08/27/2025 11:37 AM EDT
[2025-08-27 11:08] VITALS: BP 139/64; PULSE 82; RESP 18; TEMP 36.6; O2SAT 97; BMI 24.6
--- NOTE | 2025-08-27 11:14 | ED.GENADULT ---
HPI - General Adult General Chief complaint: Back Pain/Injury Stated complaint: back and abd pain Time Seen by Provider: 08/27/25 11:18 Source: patient Mode of arrival: ambulatory Limitations: no limitations History of Present Illness ED Provider: Mika Barba HPI narrative: 54-year-old female with pmh of osteopenia presents to the ED for back pain after heavy lifting. Patient take medication to prevent fractures due to weak bones have history of fractures with bones in the past. Patient is concerned for fracture in the back due to heavy lifting of TV. Patient denies any abdominal pain, IV drug use, immunocompromised diseases, saddle anesthesia, urinary/bowel incontinence or genitourinary symptoms. Related Data Home Medications ?Medication ?Instructions ?Recorded ?Confirmed lisinopril 20 1 tab PO DAILY 05/11/22 mg-hydrochlorothiazide 12.5 mg tablet Previous Rx's ?Medication ?Instructions ?Recorded cyclobenzaprine 10 mg tablet 10 mg PO TID PRN muscle spasm #14 06/29/23 tabs ibuprofen 600 mg tablet 600 mg PO Q8H PRN pain #14 tabs 06/29/23 lidocaine 5 % topical patch 1 patch topical DAILY #15 ea 06/29/23 prednisone 20 mg tablet 20 mg PO DAILY 7 days #7 tabs 09/07/23 cyclobenzaprine 10 mg tablet 10 mg PO TID PRN muscle spasm #20 10/08/23 tabs lidocaine 5 % topical patch 1 patch topical DAILY #30 ea 10/08/23 lidocaine 5 % topical patch 1 patch topical DAILY #15 ea 08/27/25 naproxen 500 mg tablet 500 mg PO BID PRN pain #14 tabs 08/27/25 prednisone 20 mg tablet 40 mg (2 x 20 mg) PO DAILY 5 days 08/27/25 #10 tabs Allergies Allergy/AdvReac Type Severity Reaction Status Date / Time penicillin V Allergy Unknown Hives Verified 08/27/25 11:13 Penicillins (PENICILLINS) Allergy Unknown UNKNOWN Verified 08/27/25 11:13 Review of Systems Review of Systems: back pain Yes all other systems are reviewed and are negative PMFSH Past Medical History Medical History High blood pressure Social History Social History Alcohol intake: never Advance Directives: No Advance Directives Information Provided: Yes Current occupational status: disabled 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 Physical Exam ED Vital Signs: Vital Signs - 24 hr 08/27/25 11:08 Temperature 97.8 F Pulse Rate 82 Respiratory Rate 18 Blood Pressure 139/64 Pulse Oximetry 97 Oxygen Delivery Method Room Air BMI result Body Mass Index 24.6 Const General: cooperative, healthy appearing, comfortable, no acute distress, well developed, alert, awake and Physically active Orientation/consciousness: patient oriented x3 HENMT Head: Yes normal to inspection, Yes No palpable skull fracture present, Yes normocephalic and Yes atraumatic Ears: hearing grossly normal bilaterally, external ears normal, TM's normal bilaterally, TM normal on the right, TM normal on the left, EAC's normal, mastoids normal and no periauricular adenopathy General nose exam: Normal external nose present, Normal nares present and No nasal polyps present Mouth: Normal oral and palatal mucosa present, lip normal and tongue normal Throat: Yes posterior oropharynx normal, Yes tonsils normal and Yes uvula midline Eyes General: appearance normal, both eyes and all related structures Neck Neck: Yes normal visual inspection, Yes full ROM, Yes no lymphadenopathy, Yes no meningeal signs, Yes trachea midline, Yes supple, No anterior neck swelling and No tender Chest Chest palpation & inspection: normal inspection of the chest and normal palpation of entire chest wall Resp Effort & Inspection: normal respiratory effort and able to speak in complete sentences Auscultation: clear to auscultation bilaterally Cardio Jugular venous distension: no JVD Heart sounds: S1 normal heart sound present and S2 normal heart sound present GI Inspection: Yes normal to inspection Palpation (GI): Soft to palpation, not firm, nontender, no guarding and not rigid General: Yes no CVA tenderness Back/Spine/Pelvis Back: no CVA tenderness and back tenderness (lumbar) Skin General skin exam: no rashes or lesions noted, elasticity normal and turgor normal Neuro General: patient oriented x3, gait normal, tone normal, moves all extremities, Normal light touch and pain sensation, no meningeal signs, no focal motor deficits and CN's II-XI intact bilaterally Extrem General: Yes normal to inspection, Yes full ROM and Yes capillary refill normal Psych Appearance: grossly normal, well kempt and not disheveled Medical Decision Making Medical Decision Making MDM Narrative: 54-year-old female with pmh of osteopenia presents to the ED for back pain after heavy lifting. Patient take medication to prevent fractures due to weak bones have history of fractures with bones in the past. Patient is concerned for fracture in the back due to heavy lifting of TV. Patient denies any abdominal pain, or genitourinary symptoms. Lumbar spine x-ray ordered. 12:09pm: Patient's x-ray negative for fracture but does shows arthritis with anterior subluxation due to facet arthritis. Patient has no weakness/numbness/tingling of lower extremity. Patient has normal gait. Not suspecting cauda equinus, epidural abscess, pyelonephritis, kidney stones, osteomyelitis, or any other life-threatening etiology. Patient explained worrisome signs informed return to the ED immediately Differential Diagnosis Differential Diagnoses: The differential diagnosis associated with the presentation includes (Fracture, dislocation, sprain) Admission/Observation Consideration of admission/observation: Escalation of care including admission/observation considered Independent Interpretation I performed an independent interpretation of an: Plain X-Ray Radiology Impression Discussion of test interpretation with radiology: I have reviewed the radiologist's reading. Independent Historian Clinical information obtained from an independent historian. History obtained from or confirmed by: Other (Patient) Prescription Management I considered prescription management with: Pain Medication Discharge Plan Discharge Clinical Impression: Lumbar radiculopathy, Strain of lumbar region Patient Disposition: Home, Self-Care Instructions: Low Back Strain (ED), Lumbar Radiculopathy (ED), Lower Back Exercises (ED) Additional Instructions: Recommend follow-up with primary care provider and spinal surgeon/also pain clinic. Return to the ED immediately for any worsening back pain, urinary/bowel incontinence, paralysis numbness/tingling of lower extremity, Genital numbness, nausea, vomiting, fever, chills, abdominal pain, or any other concerning symptoms. [address] [address] XRay Report Signed Patient: Marcie Dixon MR#: [id number] : 1970 Acct:[id number] Age/Sex: 54 / F ADM Date: 08/27/25 Loc: HO.ED Attending Dr: Ordering Physician: Mika Barba Date of Service: 08/27/25 Procedure(s): XR lumbar spine 2-3V Accession Number(s): [id number] cc: Mika Barba; Physician,Unknown ~ Reason for Exam: back pain. fracture? EXAMINATION: XR LUMBOSACRAL SPINE CLINICAL INFORMATION: back pain. fracture? COMPARISON: None available. TECHNIQUE: Three views of the lumbosacral spine. FINDINGS: Mild anterior subluxation of L4 with respect to L5 measuring 2.5 mm. Bone alignment is otherwise normal. No fracture or dislocation. Mild degenerative spondylosis at L2-3 Degenerative spondylosis and degenerative disc disease at L5-S1. There is lower lumbar spine facet arthritis. Mild atherosclerotic disease. XR/XR lumbar spine 2-3V IMPRESSION: No fracture seen. Degenerative changes. Mild anterior subluxation of L4 with respect to L5 probably secondary to facet arthritis. Electronically signed by: Quiana Barros MD 08/27/2025 11:37 AM EDT RP Prescriptions: New lidocaine 5 % adhesive patch,medicated 1 patch topical DAILY Qty: 15 0RF Rx Instructions: leave on most painful area for up to 12 hrs naproxen 500 mg tablet 500 mg PO BID PRN (Reason: pain) Qty: 14 0RF prednisone 20 mg tablet 40 mg PO DAILY 5 Days Qty: 10 0RF No Action cyclobenzaprine 10 mg tablet 10 mg PO TID PRN (Reason: muscle spasm) Qty: 14 0RF ibuprofen 600 mg tablet 600 mg PO Q8H PRN (Reason: pain) Qty: 14 0RF lidocaine 5 % adhesive patch,medicated 1 patch topical DAILY Qty: 15 0RF Rx Instructions: leave on most painful area for up to 12 hrs prednisone 20 mg tablet 20 mg PO DAILY 7 Days Qty: 7 0RF cyclobenzaprine 10 mg tablet 10 mg PO TID PRN (Reason: muscle spasm) Qty: 20 0RF lidocaine 5 % adhesive patch,medicated 1 patch topical DAILY Qty: 30 0RF Rx Instructions: leave on most painful area for up to 12 hrs lisinopril-hydrochlorothiazide 20-12.5 mg tablet 1 tab PO DAILY Referrals: Mohamud Naidu MD, PhD [Physician, Neuro Spine] - 2 days Referral Note: Back pain. Lumbar radiculopathy. Anterior subluxation due to facet arthritis Clinical Impression: Lumbar radiculopathy; Strain of lumbar region Stand Alone Forms: Work/School Release Interventions: ED Discharge Assessment Last Done: 08/27/25 12:28 Discharge Date/Time: 08/27/25 12:28 Print Language: Kyrgyz
[2025-08-27 12:28] VITALS: BP 139/64; PULSE 82; RESP 18; TEMP 36.6; O2SAT 97
--- OUTSIDE RECORDS SUMMARY | 2025-08-27 15:12 | XMS_ITS | Clinical Summary ---
Author Organization [employer] Address [address] [place] [address] Care Team Providers Care Planer Setup Operator Name Role Phone Unavailable Primary Care Provider Unavailabl e Allergies Active Allergy Reactions Criticality Noted Date Comments Penicillins 01/14/2024 Medications * This document contains information received from the source organization and may not represent a complete record from that organization. Blood Pressure kitIndications:Es sential hypertension Use as directed 1 kit 4 Active lisinopril-hydroC HLOROthiazide 20-12.5 MG tabletIndications :Essential hypertension TOME JOSE TABLETA TODOS LOS D 90 tablet 1 4 Active Active Problems Problem Noted Date Diagnosed Date Chronic hand pain, left 04/10/2024 Assessment & Plan (04/10/2024 11:37 AM EDT): Acetaminophen PRN continue with wrist brace XRAYs ordered Hand specialist referral Chronic pain of left wrist 04/10/2024 Assessment & Plan (04/10/2024 11:37 AM EDT): As above Enlarged thyroid 04/10/2024 Assessment & Plan (04/10/2024 11:38 AM EDT): TSH Thyroid US Prediabetes 04/10/2024 Assessment & Plan (04/10/2024 11:38 AM EDT): Diet counseling done Nutrition referral Hypertension 01/14/2024 Assessment & Plan (04/10/2024 11:39 AM EDT): Patient forgot to take her medication today I advise not to miss any dose, low Na diet, weight reduction F/u with her PCP Fibromyalgia 01/14/2024 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 01/14/2024 Generalized anxiety disorder 01/14/2024 Assessment & Plan (04/10/2024 11:38 AM EDT): Continue to follow with therapist Social History Tobacco Use Types Packs/Day Years Used Date Smoking Tobacco: Never Passive Smoke Exposure: Never Smokeless Tobacco: Never Tobacco Cessation:Counseling Given: Not Answered Depression Answer Date Recorded Patient Health Questionnaire-9 [...] 8:37 AM EDT Sexual Orientation Straight 01/14/2024 8 :37 AM EDT Last Filed Vital Signs Vital Sign Reading Time Taken Comments Blood Pressure 137/90 04/25/2024 8:41 AM EDT Pulse 80 04/25/2024 8:41 AM EDT Temperature 37 C (98.6 F) 04/25/2024 8:41 AM EDT Respiratory Rate 17 04/25/2024 8:41 AM EDT Oxygen Saturation 96% 04/10/2024 9:16 AM EDT Inhaled Oxygen Concentration - - Weight 75.6 kg (166 lb 9.6 oz) 04/25/2024 8:41 A M EDT Height 170.2 cm (5' 7 ) 04/25/2024 8:41 AM EDT Body Mass Index 26.09 04/25/2024 8:41 AM EDT Plan of Treatment Health Maintenance Due Date Last Done Comments CT Colonography 1968 Colonoscopy 1968 Colorectal Cancer Screening 1968 FIT DNA/Cologuard 1968 FIT 1968 FOBT 1968 SDOH Screening 1968 Sigmoidoscopy 1968 Disability Screening 1968 Alcohol/Substance Use Screening 1980 DTaP/Tdap/Td Vaccines (1 - Tdap) 1987 Hepatitis B Vaccines (1 of 3 - 19+ 3-dose series) 1987 Pap Smear 1989 Cervical Cancer Screening 1998 HPV/Cotest 1998 Mammogram 2008 Pneumococcal Vaccine: 50+ Years (1 of 1 - PCV) 2018 Zoster Vaccines (1 of 2) 2018 Depression Screening 01/14/2025 01/15/2024, 01/15/2024 Diabetes: Hemoglobin A1C 04/25/2025 024, 01/14/2024 Tobacco Screening 04/25/2025 04/25/2024 COVID-19 Vaccine (1 - 2023-2 5 season) 2025 Influenza Vaccine (#1) 2025 Lipid Panel 04/25/2029 04/25/2024 RSV Patients and Patients Aged 60 years or older (1 - 1-dose 75+ series) 2043 HIV Screening Completed 04/25/2024 Hepatitis C Screening Completed 04/25/2024 HIB Vaccines Aged Out No longer eligi ble based on patient's age to complete this topic HPV Vaccines Aged Out No longer eligi ble based on patient's age to complete this topic Hepatitis A Vaccines Aged Out No long er eligible based on patient's age to complete this topic IPV Vaccines Aged Out No longer eligi ble based on patient's age to complete this topic Meningococcal B Vaccine Aged Out No l onger eligible based on patient's age to complete this topic Meningococcal Vaccine Aged Out No edgardo pavithra eligible based on patient's age to complete this topic RSV under 20 months Aged Out No longe r eligible based on patient's age to complete this topic Rotavirus Vaccines Aged Out No longer eligible based on patient's age to complete this topic Procedures Procedure Name Priority Date/Time Associated Diagnosis Comments POCT GLYCATED HEMOGLOBIN, TOTAL Routine 04/25/2024 9:18 AM EDT Prediabetes HEPATITIS PANEL, GENERAL Routine 04/25/2024 9:16 AM EDT Healthcare maintenance HIV 1/2 ANTIGEN/ANTIBODY, FOURTH GENERATION W/RFL Routine 04/25/2024 9:16 AM EDT Healthcare maintenance LIPID PANEL, STANDARD Routine 04/25/2024 9:16 AM EDT Essential hypertension from Last 3 Months or Most Recently Relevant to Health Maintenance Results * POCT A1C (04/25/2024 9:18 AM EDT) Hemoglobin A1C 5.9 4.0 - 6.0 % Swab 04/25/2024 9:18 AM EDT Navid Howell MD POINT OF CARE TEST ENTER/EDIT OR DERABLES Final Result * Hepatitis Panel, General (04/25/2024 9:16 AM EDT) Hepatitis A IgM Nonreactive Nonreactive [facility] Comment:IgM antibodies to NGUYEN V not detected; does not exclude earlyacute or recovered HAV infection. ~Hepatitis B Surface Antibody NONREACTIVE Nonreactive [facility] Comment:Nonreactive: < 8.00 mIU/mL Hepatitis B Core Antibody Nonreactive Nonreactive [facility] Hepatitis C Antibody Nonreactive Nonreactive [facility] Comment:Antibodies to HCV no t detected; does not exclude early acuteHCV infection. Hepatitis B Surface Ag Negative Negative [facility] Blood 04/25/2024 9:16 AM EDT 04/25/2024 11:11 AM EDT [facility] LAB BLOOD ORDERABLES Final Re sult [facility] [address], [place] [phone] * HIV-1/2 Antigen and Antibodies, Fourth Generation, with Reflexes (04/25/2024 9:16 AM EDT) HIV AB/AG Nonreactive Nonreactive [facility] Comment:HIV-1 p24 Ag and/or HIV-1/HIV-2 Ab not detected.A test result that is nonreactive does not exclude thepossibility of exposure to or infection with HIV-1 and/orHIV-2. Nonreactive results in this assay for individualswith prior exposure to HIV-1 and/or HIV-2 may be due toantigen and antibody levels that are below the limit ofdetection of this assay.The [employer] HIV Ag/Ab Combo assay result andsupplemental assay results should be interpreted inconjunction with the patient's clinical presentation,history and other laboratory results. If the results areinconsistent with clinical evidence, additional testing issuggested to confirm the result. Blood Venous blood specimen / Unknown 04/25/2024 9:16 AM EDT 04/25/2024 11:11 AM EDT [facility] LAB BLOOD ORDERABLES Final Re sult [facility] [address] [place] [phone] * (ABNORMAL) Lipid Panel, Standard (04/25/2024 9:16 AM EDT) Triglycerides 105 <150 mg/dL [facility] Comment:Desirable Triglyceri de: less than 150 mg/dLBorderline High Triglyceride 150-199 mg/dLHigh Triglyceride: 200-499 mg/dLVery High Triglyceride: greater than or equal to 5OO mg/dL Cholesterol 211(H) <200 mg/dL [facility] Comment:Desirable Cholestero l: less than 200 mg/dLBorderline High Cholesterol: 200-239 mg/dLHigh Cholesterol: greater than 239 mg/dL LDL Cholesterol Calculated 140(H) <100 mg/dL [facility] Comment:Desirable LDL: less than 100 mg/dLNear Optimal/Above Optimal LDL: 110- 129 mg/dLBorderline High LDL: 130-159 mg/dLHigh LDL: 160-189 mg/dLVery High LDL: greater than or equal to 190 mg/dL HDL Cholesterol 50 >40 mg/dL [facility] Comment:Desirable HDL: great er than 40 mg/dL Note: This HDL assay may give artificially low results in patients with liver disease. Blood Venous blood specimen / Unknown 04/25/2024 9:16 AM EDT 04/25/2024 11:11 AM EDT [facility] LAB BLOOD ORDERABLES Final Re sult [facility] [address] [place] [phone] from Last 3 Months or Most Recently Relevant to Health Maintenance Insurance [facility] C[facility]
--- OUTSIDE RECORDS SUMMARY | 2025-08-27 15:12 | XMS_ITS | Encounter Summary ---
Author Organization [employer] Address [address] [place] [address] Care Team Providers Care Celery Stripper Name Role Phone Unavailable Primary Care Provider Unavailabl e Encounter Details Date Type Department Care Team (Late st Contact Info) Description 05/13/2024 Orders Only [facility] MEDICINE [address] [place] [address] Cony De Leon DO [address] [place] [address] Social History Tobacco Use Types Packs/Day Years [...]
== END 2025-08-27 12:28 | disposition home or self-care (01) ==
LOC: HO.ED 12:21
PROVIDERS: Emergency Provider Emergency Medicine
DX: M54.16 Radiculopathy, lumbar region (principal); S39.012A Strain of muscle, fascia and tendon of lower back, initial encounter; M54.9 Dorsalgia, unspecified; M85.80 Other specified disorders of bone density and structure, unspecified site; X58.XXXA Exposure to other specified factors, initial encounter; Y93.9 Activity, unspecified; Y92.9 Unspecified place or not applicable; Y99.9 Unspecified external cause status
CPT/HCPCS: 72100; 99282; 99283

== ENCOUNTER → 2025-08-27 11:14 | Outpatient (BNV) | payer OTHER, SELFPAY | PROVIDERS: Emergency Provider Emergency Medicine; Visit Provider Radiology Diagnostic Radiology | DX: M54.9 Dorsalgia, unspecified (principal) | CPT/HCPCS: 72100 ==